=== PATIENT | male | born 1995 | race Caucasian/White ===

== ENCOUNTER 2018-11-22 23:18 | Emergency (ER) | payer SELFPAY ==
[~2018-11-22] VITALS: Ht 188 cm; Wt 94.8 kg
[2018-11-22 23:21] VITALS: Ht 188 cm; Wt 94.8 kg
[2018-11-23 01:26] VITALS: BP 123/62
== END 2018-11-23 01:26 | disposition home or self-care (01) ==
LOC: ED 23:18
DX: L05.01 Pilonidal cyst with abscess (principal); J45.909 Unspecified asthma, uncomplicated
CPT/HCPCS: J2001

== ENCOUNTER 2019-04-10 20:29 | Emergency (ER) | payer MEDICAID ==
[~2019-04-10] VITALS: Ht 188 cm; Wt 91.9 kg
[2019-04-10 20:34] VITALS: Ht 188 cm; Wt 91.9 kg
[2019-04-10 22:32] LABS: UA SPECIFIC GRAVITY >=1.030 (1.005-1.035); microscopic required? YES; urine erythrocyte NEGATIVE (NEGATIVE)
[2019-04-10 22:33] LABS: BASOPHIL % 0.3 % (0-2); PLATELET COUNT 249 x10^3mcL (130-400); RED CELL DISTRIBUTION WIDTH 13.1 % (11.5-14.5)
[2019-04-10 22:47] LABS: CALCIUM 9.2 mg/dL (8.5-10.1); CARBON DIOXIDE 31.3 mmol/L (21-32); CHLORIDE SERUM 106 mmol/L (98-107); GFR1 > 60 mL/min; GLUCOSE SERUM 98 mg/dL (74-106); POTASSIUM SERUM 4.4 mmol/L (3.5-5.1); SODIUM SERUM 144 mmol/L (136-145)
[2019-04-10 22:52] LABS: ALBUMIN 4.3 g/dL (3.4-5.0); ALKALINE PHOSPHATASE 92 U/L (46-116); ALT/SGPT 29 U/L (16-63); AST/SGOT 20 U/L (15-37); BILIRUBIN TOTAL 0.7 mg/dL (0.20-1.00); LIPASE 84 IU/L (73-393); TOTAL PROTEIN, SERUM 8.2 g/dL (6.4-8.2)
[2019-04-10 23:34] VITALS: BP 137/87
== END 2019-04-10 23:34 | disposition home or self-care (01) ==
LOC: ED 20:29
PROVIDERS: Emergency Medicine
DX: R10.11 Right upper quadrant pain (principal); R10.13 Epigastric pain; R22.2 Localized swelling, mass and lump, trunk; J45.909 Unspecified asthma, uncomplicated
CPT/HCPCS: 36415

== ENCOUNTER 2019-07-16 17:30 | Emergency (ER) | payer SELFPAY ==
[~2019-07-16] VITALS: Ht 185.4 cm; Wt 89.4 kg
[2019-07-16 17:56] VITALS: Ht 185.4 cm; Wt 89.4 kg
[2019-07-16 19:25] VITALS: BP 139/83
== END 2019-07-16 19:25 | disposition home or self-care (01) ==
LOC: ED 17:30
DX: Z11.3 Encounter for screening for infections with a predominantly sexual mode of transmission (principal); J45.909 Unspecified asthma, uncomplicated
CPT/HCPCS: 36415